=== PATIENT | female | born 1940 | race Caucasian/White ===

== ENCOUNTER 2017-04-20 07:11 | Inpatient (IN) | payer MEDICARE ==
[~2017-04-20] VITALS: Ht 152.4 cm; Wt 45.8 kg
[~2017-04-20 07:11] MED LIST: ALBU2.5V14 IH; ASPI-630 PO; BUDE10.2 IH; CALC600T4 PO; LOSA100T6 PO; LOSA1TAB16 PO; TIOT18CA IH
[2017-04-20] MEDS ORDERED: IPRATRPIUM/ALBUTEROL 0.5/2.5MG 3 ML NEBU. NEB ONE (07:15)
[2017-04-20] MEDS ORDERED: methylPREDNISolone SOD SUCC PF 125 MG/2 ML VIAL. IV ONE (07:15)
--- NOTE | 2017-04-20 07:20 | PHYS DOC ---
Past History Past Medical History: COPD, Hypertension Past Surgical History: Hysterectomy Smoking: Non-smoker Alcohol Use: None Drug Use: None Adult General Chief Complaint Chief Complaint: respiratory distress HPI HPI Patient is a 76 year old female who presents with complaint of respiratory distress. Patient states that she has been having shortness of breath and coughing for the past 2 days. Patient states that her symptoms became severely worse this morning upon awakening. Patient states that she tried albuterol and Spiriva for her symptoms earlier this morning with no improvement in symptoms. Patient denies any fevers or chest pain at this time. Patient follows a Dr. Sterling for primary care. Patient has had no nausea, vomiting, or diaphoresis associated with symptoms. Patient has history of COPD. Patient states she was last admitted to the hospital for similar symptoms "6 or 7 years ago." Review of Systems Review of Systems Constitutional: Denies fever or chills [] Eyes: Denies change in visual acuity, redness, or eye pain [] HENT: Denies nasal congestion or sore throat [] Respiratory: Shortness of breath, cough[] Cardiovascular: Denies chest pain or edema[] GI: Denies abdominal pain, nausea, vomiting, bloody stools or diarrhea [] : Denies dysuria or hematuria [] Musculoskeletal: Denies back pain or joint pain [] Integument: Denies rash or skin lesions [] Neurologic: Denies headache, focal weakness or sensory changes [] Current Medications Current Medications Current Medications Medications (Trade) Dose Ordered Sig/Gunnar Start Time Stop Time Status Last Admin Dose Admin Albuterol/ Ipratropium (Duoneb) 6 ml 1X ONCE 04/20/17 07:15 04/20/17 07:16 UNV Methylprednisolone Sodium Succinate (SOLU-Medrol 125MG VIAL) 125 mg 1X ONCE 04/20/17 07:15 04/20/17 07:16 UNV Allergies Allergies Allergies Coded Allergies Type Severity Reaction Last Updated Verified Amoxicillin Allergy Mild 10/20/13 Yes Physical Exam Physical Exam Constitutional: Alert, afebrile, appears in moderate to severe respiratory distress. [] HENT: Normocephalic, atraumatic, bilateral external ears normal, oropharynx moist, no oral exudates, nose normal. [] Eyes: PERRLA, EOMI, conjunctiva normal, no discharge. [] Neck: Normal range of motion, no tenderness, supple, no stridor. [] Cardiovascular: Tachycardia, regular rhythm, no murmur [] Lungs & Thorax: Moderate to severe restriction of air movement bilaterally, accessory muscle usage bilaterally, expiratory wheezes bilaterally, no rales[] Abdomen: Bowel sounds normal, soft, no tenderness, no masses, no pulsatile masses. [] Skin: Warm, dry, no erythema, no rash. [] Back: No tenderness, no CVA tenderness. [] Extremities: No tenderness, no cyanosis, no clubbing, ROM intact, no edema. [] Neurologic: Alert and oriented X 3, normal motor function, normal sensory function, no focal deficits noted. [] Current Patient Data Vital Signs Vital Signs Date Time Temp Pulse Resp B/P (MAP) Pulse Ox O2 Delivery O2 Flow Rate FiO2 04/20/17 08:03 112 18 128/76 (93) 94 Room Air 04/20/17 07:41 2.0 04/20/17 07:14 98.2 Lab Results Laboratory Tests Test 04/20/17 07:23 White Blood Count 12.1 x10^3/uL Red Blood Count 4.32 x10^6/uL Hemoglobin 13.8 g/dL Hematocrit 39.4 % Mean Corpuscular Volume 91 fL Mean Corpuscular Hemoglobin 32 pg Mean Corpuscular Hemoglobin Concent 35 g/dL Red Cell Distribution Width 12.9 % Platelet Count 226 x10^3/uL Neutrophils (%) (Auto) 88 % Lymphocytes (%) (Auto) 4 % Monocytes (%) (Auto) 4 % Eosinophils (%) (Auto) 3 % Basophils (%) (Auto) 1 % Neutrophils # (Auto) 10.7 x10^3uL Lymphocytes # (Auto) 0.5 x10^3/uL Monocytes # (Auto) 0.5 x10^3/uL Eosinophils # (Auto) 0.3 x10^3/uL Basophils # (Auto) 0.1 x10^3/uL Sodium Level 131 mmol/L Potassium Level 3.8 mmol/L Chloride Level 96 mmol/L Carbon Dioxide Level 22 mmol/L Anion Gap 13 Blood Urea Nitrogen 14 mg/dL Creatinine 0.6 mg/dL Estimated GFR (Cockcroft-Gault) 97.2 BUN/Creatinine Ratio 23 Glucose Level 123 mg/dL Calcium Level 8.8 mg/dL Total Bilirubin 0.4 mg/dL Aspartate Amino Transf (AST/SGOT) 40 U/L Alanine Aminotransferase (ALT/SGPT) 29 U/L Alkaline Phosphatase 81 U/L Total Protein 7.4 g/dL Albumin 4.1 g/dL Albumin/Globulin Ratio 1.2 Current Medications Medications (Trade) Dose Ordered Sig/Gunnar Route PRN Reason Start Time Stop Time Status Last Admin Dose Admin Albuterol/ Ipratropium (Duoneb) 6 ml 1X ONCE NEB 04/20/17 07:15 04/20/17 07:21 DC 04/20/17 07:15 Methylprednisolone Sodium Succinate (SOLU-Medrol 125MG VIAL) 125 mg 1X ONCE IV 04/20/17 07:15 04/20/17 07:21 DC 04/20/17 07:15 EKG EKG Interpreted by me: Heart rate 108, sinus tachycardia, normal intervals, normal axis, no acute ST/T-wave abnormalities present, no significant changes from previous EKG on October 19, 2013[] Radiology/Procedures Radiology/[place] [address] IMAGING REPORT Signed PATIENT: LALITHA DIETRICH ACCOUNT: [id number] : 1940 LOCATION: ER AGE: 76 SEX: F EXAM STATUS: REG ER ORD. PHYSICIAN: ALEYDA COVINGTON MD REASON: shortness of breath PROCEDURE: PORTABLE CHEST 1V AP chest. History: Short of breath AP view was taken of the chest lungs are clear. Heart is normal in size without heart failure. There is no effusion. Impression: 1. No acute chest disease. DICTATED AND SIGNED BY: ANTHONY ANAYA MD DATE: 04/20/17 0751 CC: ROSINA SMITH MD; ALEYDA COVINGTON MD ~ [] Course & Med Decision Making Course & Med Decision Making Pertinent Labs and Imaging studies reviewed. (See chart for details) Patient was given 125 mg of IV Solu-Medrol and 2 DuoNeb treatments in the emergency department. On reevaluation, patient states that her breathing has improved. Chest x-ray shows no evidence of pneumonia. Patient states that she wants to go home at this time. The patient agreed to try Lortab ambulation off of oxygen in the emergency department. Patient ambulated approximately 50 feet in the emergency department. Patient's oxygen saturation while ambulating down to 88% and patient became noticeably more short of breath after ambulation. After speaking with the patient, she states that she does not feel that she can go home and her current state and is agreeable to admission to the hospital for treatment of her COPD exacerbation. I spoke with Dr. Grant, hospitalist, who accepted care patient in hospital. Patient will continue on nebulizer treatments and IV steroids. Dragon Disclaimer Dragon Disclaimer This chart was dictated in whole or in part using Voice Recognition software in a busy, high-work load, and often noisy Emergency Department environment. It may contain unintended and wholly unrecognized errors or omissions. Departure Departure: Impression: Primary Impression: COPD with acute exacerbation Additional Impression: Hypoxia Disposition: ADMITTED INPATIENT Condition: STABLE Referrals: ROSINA SMITH MD (PCP) Problem Qualifiers ALEYDA COVINGTON MD Apr 20, 2017 07:20
[2017-04-20 07:35] LABS: BASO # 0.1 x10^3/uL (0.0-0.2); BASO % 1 % (0-3); EOS # 0.3 x10^3/uL (0.0-0.7); EOS % 3 % (0-3); HEMATOCRIT 39.4 % (36.0-47.0); HEMOGLOBIN 13.8 g/dL (12.0-15.5); LYMPH # 0.5 x10^3/uL (1.0-4.8); LYMPH % 4 % (24-48); MEAN CORPUSCULAR HEMOGLOBIN 32 pg (25-35); MEAN CORPUSCULAR HGB CONC 35 g/dL (31-37); MEAN CORPUSCULAR VOLUME 91 fL (79-100); MONO # 0.5 x10^3/uL (0.0-1.1); MONO % 4 % (0-9); NEUT # 10.7 x10^3uL (1.8-7.7); NEUT % 88 % (31-73); PLATELET COUNT 226 x10^3/uL (140-400); RED BLOOD COUNT 4.32 x10^6/uL (3.50-5.40); RED CELL DISTRIBUTION WIDTH 12.9 % (11.5-14.5); WHITE BLOOD COUNT 12.1 x10^3/uL (4.0-11.0)
[2017-04-20 07:50] LABS: ALBUMIN 4.1 g/dL (3.4-5.0); ALBUMIN/GLOBULIN RATIO 1.2 (1.0-1.7); CALCIUM 8.8 mg/dL (8.5-10.1); CREATININE 0.6 mg/dL (0.6-1.0); GFR 97.2; POTASSIUM 3.8 mmol/L (3.5-5.1); TOTAL BILIRUBIN 0.4 mg/dL (0.2-1.0); TOTAL PROTEIN 7.4 g/dL (6.4-8.2)
--- NOTE | 2017-04-20 07:54 | RAD ---
AP chest. History: Short of breath AP view was taken of the chest lungs are clear. Heart is normal in size without heart failure. There is no effusion. Impression: 1. No acute chest disease.
--- NOTE | 2017-04-20 08:54 | EKG ---
[address] [address] Test Date: 2017-04-20 Test Time: 07:51:44 Pat Name: LALITHA DIETRICH Department: Room: Gender: F Bag Sorter: : 1940 Requested By: ALEYDA COVINGTON Order Number: [id number] Reading MD: Measurements Intervals [place] Rate: 108 P: 90 TN: 128 QRS: 43 QRSD: 86 T: 56 QT: 306 QTc: 414 Interpretive Statements SINUS TACHYCARDIA QRS(T) CONTOUR ABNORMALITY CONSIDER ANTEROSEPTAL MYOCARDIAL DAMAGE CONSIDER INFERIOR MYOCARDIAL DAMAGE POSSIBLY ABNORMAL ECG RI6.01 No previous ECG available for comparison
[2017-04-20 09:15] VITALS: BP 139/67
[2017-04-20 12:03] LABS: BILIRUBIN,URINE NEG (NEG); CLARITY,URINE CLEAR; COLOR,URINE YELLOW; GLUCOSE,URINE NEG (NEG)
[2017-04-20 12:04] LABS: BACTERIA,URINE 0 /HPF (0-FEW); NITRITE,URINE NEG (NEG); SQUAMOUS EPITHELIAL CELL,UR FEW /LPF; UROBILINOGEN,URINE 0.2 mg/dL (0.2 mg/dL); WBC,URINE 0 /HPF (0-4)
[2017-04-20] MEDS ORDERED: CILO100T PO (12:34)
[2017-04-20] MEDS ORDERED: LOSA1TAB17 PO (13:09)
[2017-04-20 15:19] VITALS: BP 100/52
--- NOTE | 2017-04-20 16:40 | HP ---
ADMIT DATE: 04/20/2017 HISTORY OF PRESENT ILLNESS: The patient is a 76-year-old female patient, who came to the Emergency Room complaining of shortness of breath and coughing for the last , 2 days. She stated that her symptoms became severely worse this morning upon awakening. The patient stated that she tried albuterol and Spiriva for her symptoms earlier this morning without no improvement in symptoms. She denied any fever or chest pain. She has had no nausea, vomiting, or diaphoresis symptoms. She is known to have chronic obstructive pulmonary disease; however, the last admission was about 6 to 7 years. She apparently has completed 5-day course of nitrofurantoin recently. In fact, the last dose of Macrobid was last night at 11:00. PAST MEDICAL HISTORY: Significant for chronic obstructive pulmonary disease, hypertension, hyperlipidemia, peripheral vascular disease. PAST SURGICAL HISTORY: The patient has had right lower lobe angioplasty and stent deployment, bladder suspension surgery, bilateral cataract extraction, tonsillectomy, appendectomy, total abdominal hysterectomy, bilateral salpingectomy. She has also had colonoscopy as her stool was positive for blood. She apparently had history of cervical cancer as well as urinary incontinence and anxiety. ALLERGIES: She is allergic to AMOXICILLIN. MEDICATIONS: She is currently on following medications: She is on albuterol sulfate 2.5 mg by nebulizer every 4 hours, aspirin 81 mg once a day, budesonide/formoterol fumarate for Symbicort 2 puffs twice a day, calcium carbonate 600 mg once a day, cilostazol 100 mg daily, losartan/hydrochlorothiazide 100/25 mg 1 tablet daily, tiotropium bromide for Spiriva 1 inhalation once a day. FAMILY HISTORY: She has 2 sisters, one older and 1 younger. Her brother at age of 59 because of acute leukemia. Her father at age of 41 because of acute leukemia. Mother at age of 59 because of pulmonary embolism. SOCIAL HISTORY: She is , has 1 daughter. She is an ex-smoker, quit at age of 39. Drinks 1 glass of wine every day, sometimes 2 glasses of wine. 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 REVIEW OF SYSTEMS: The patient denied any blurring of vision, cataract, glaucoma or macular degeneration. Denied any earache, tinnitus or sensorineural deafness. Denied any nosebleeds, stuffy nose or postnasal drip. Denied any sore throat, sore tongue, toothache, hoarseness of voice or difficulty swallowing. Denied any nausea, vomiting, diarrhea or constipation. Denied any hematemesis, melena, or hematochezia. Denied any dysuria, frequency, or hematuria. Denied any chest pain. Did complain of shortness of breath, cough, which is mostly dry. Denied any chills, rigors, or fever. Denied any dizziness, lightheadedness, or vertigo. PHYSICAL EXAMINATION: GENERAL: On arrival to the Emergency Room, she was slightly pale, but no jaundice, cyanosis, or thyromegaly. No jugular venous distention. No limb edema. VITAL SIGNS: Her heart rate was 109, blood pressure was 161/79, temperature was 98.2, respiratory rate was 24, and oxygen saturation was 87% on room air. HEAD, EYES, EARS, NOSE AND THROAT: Showed normocephalic, atraumatic. NECK: Supple. HEART: Showed normal first and second heart sounds. No gallop, rub or murmur. CHEST: Clear to auscultation. The patient has moderate to severe restriction of air movement bilaterally. She was using accessory muscles bilaterally with expiratory wheezes. No rales. ABDOMEN: Soft, nontender. No guarding or rigidity. No organomegaly. All hernial orifices intact. Bowel sounds normal. NEUROLOGIC: She was awake, alert, oriented x 3 with normal motor or sensory deficit. EXTREMITIES: Showed no clubbing, cyanosis, or edema. SKIN: Warm, dry with no erythema or rash. LABORATORY DATA: While in the Emergency Room, her lab work showed white cell count of 12,100, hemoglobin 13.8, hematocrit 39, MCV 91, and platelet count of 226,000 with a manual differential showed 86% polymorphs, 4% lymphocytes. Her serum sodium was 131, potassium 3.8, chloride 96, bicarbonate 22, anion gap of 13, BUN of 14, creatinine 0.6, estimated GFR was 97 mL per minute. Her glucose was 123, calcium was 8.8. Total bilirubin, AST, ALT, alkaline phosphatase were normal. Total protein was 7.4, albumin was 4.1. Her urinalysis showed the urine was yellow, clear with a pH of 6.5 with specific gravity of 1.010. The urine was negative for protein, glucose, ketones with small amount of blood, negative for nitrite and leukocyte esterase, 1-2 rbc's, 0 wbc's, and no bacteria. Her chest x-ray showed that the lungs are clear. Heart is normal in size without heart failure. There is no effusion. ASSESSMENT AND PLAN: In summary, this is a 76-year-old female patient, who was just completed the course of nitrofurantoin for what seemed to be a urinary tract infection. She came with worsening shortness of breath with dry cough and hypoxia. The patient normally is very active. She said she works 6 days a week and she walks everyday 2 miles. She is not normally on oxygen. The only other abnormality is perhaps DVT and PE. I will arrange for her to have D-dimer and might have to arrange for her to have a CT scan of the chest with PE protocol and although the temporal association between use of nitrofurantoin might explain her symptoms as nitrofurantoin is known to cause pulmonary hypersensitivity, interstitial pneumonitis, and even pulmonary fibrosis. HENRIETTA JHAVERI MD DR: HOUSTON/alexandro JOB#: [id number] / [id number]
[2017-04-20] MEDS ORDERED: IOHEXOL 300 MG/ML 75 ML VIAL. IV ONE ×2 (17:20→18:30)
[2017-04-20] MEDS ORDERED: CONTRAST GIVEN MC PRN (18:30)
[2017-04-20 19:00] VITALS: BP 116/54
--- NOTE | 2017-04-20 19:27 | RAD ---
CTA Chest with contrast: Clinical History: short of breath, elevated d-dimer, copd
Omni 300 75cc Shortness of breath. Axial helical images of the chest were obtained after the administration of 75 cc of IV Omni 300 and timed appropriately for a pulmonary arterial study. Conventional axial reconstruction was performed in addition to coronal, sagittal and bilateral oblique MIP (maximum intensity projection). This study was ordered to detect possible pulmonary embolism. There are no filling defects to suggest pulmonary embolism. The more peripheral subsegmental pulmonary arteries are not well opacified limiting our sensitivity for small peripheral pulmonary emboli. There is diffuse emphysematous changes. There is a tiny left effusion and there is mild basilar patchy opacities left more than right. There is no mediastinal or hilar lymphadenopathy. The thoracic aorta appears normal. Impression: 1. No evidence of pulmonary embolism. This study lacks sensitivity for possible small pulmonary emboli due to poor opacification of the peripheral vessels. 2. Tiny left effusion and mild basilar infiltrates likely discoid atelectasis and emphysematous changes. PQRS Compliance Statement: One or more of the following individualized dose reduction techniques were utilized for this examination: 1. Automated exposure control 2. Adjustment of the mA and/or kV according to patient size 3. Use of iterative reconstruction technique Electronically signed by: Yunier Mendieta III, MD (04/20/2017 7:23 PM) [facility]
[2017-04-20] MEDS: ALBUTEROL SULFATE 2.5 MG/3 ML NEBU. NEB PRN (20:26)
[2017-04-20] MEDS: BUDESONIDE 0.5 MG/2 ML NEBU NEB SCH (20:26)
[2017-04-20] MEDS: ASPIRIN 81 MG TAB.CHEW PO SCH (21:02)
[2017-04-20] MEDS: TEMAZEPAM 15 MG CAPSULE PO PRN (22:07)
[2017-04-20] MEDS: methylPREDNISolone SOD SUCC PF 40 MG/ML VIAL. IV SCH (22:08)
[2017-04-20 23:00] VITALS: BP 120/58
[2017-04-21 05:00] VITALS: BP 106/58
[2017-04-21] MEDS: methylPREDNISolone SOD SUCC PF 40 MG/ML VIAL. IV SCH ×3 (06:18→21:16)
[2017-04-21 06:34] LABS: BASO % 0 % (0-3); EOS % 0 % (0-3); HEMATOCRIT 35.8 % (36.0-47.0); HEMOGLOBIN 12.6 g/dL (12.0-15.5); LYMPH # 0.6 x10^3/uL (1.0-4.8); LYMPH % 4 % (24-48); MEAN CORPUSCULAR HEMOGLOBIN 32 pg (25-35); MEAN CORPUSCULAR HGB CONC 35 g/dL (31-37); MEAN CORPUSCULAR VOLUME 91 fL (79-100); MONO # 0.3 x10^3/uL (0.0-1.1); MONO % 2 % (0-9); NEUT # 14.5 x10^3uL (1.8-7.7); NEUT % 93 % (31-73); PLATELET COUNT 227 x10^3/uL (140-400); RED BLOOD COUNT 3.96 x10^6/uL (3.50-5.40); RED CELL DISTRIBUTION WIDTH 12.6 % (11.5-14.5); WHITE BLOOD COUNT 15.5 x10^3/uL (4.0-11.0)
[2017-04-21 06:45] LABS: ALBUMIN 3.4 g/dL (3.4-5.0); ALBUMIN/GLOBULIN RATIO 0.9 (1.0-1.7); CALCIUM 8.7 mg/dL (8.5-10.1); CREATININE 0.6 mg/dL (0.6-1.0); GFR 97.2; TOTAL BILIRUBIN 0.3 mg/dL (0.2-1.0)
[2017-04-21] MEDS: ACETAMINOPHEN 325 MG TABLET PO PRN ×2 (07:25→15:09)
[2017-04-21 07:38] VITALS: BP 125/66
[2017-04-21 08:02] LABS: % BANDS 5 % (0-9); % LYMPHS 3 % (24-48); % MONOS 3 % (0-10); % SEGS 88 % (35-66)
[2017-04-21 08:03] LABS: PLT ESTIMATE ADEQUATE (ADEQUATE)
[2017-04-21] MEDS ORDERED: hydroCHLOROthiazide 25 MG TABLET PO SCH (09:00)
[2017-04-21] MEDS ORDERED: POTASSIUM CL 40MEQ IN 0.9%NACL 1,000 ML IV ONE (09:10)
[2017-04-21] MEDS: CILOSTAZOL 100 MG PO SCH (09:22)
[2017-04-21] MEDS: CALCIUM CARBONATE 500 MG TABLET PO SCH (09:23)
[2017-04-21] MEDS: LOSARTAN 50 MG TABLET. PO SCH (09:23)
[2017-04-21 11:00] VITALS: BP 119/58
[2017-04-21] MEDS: BUDESONIDE 0.5 MG/2 ML NEBU NEB SCH ×2 (11:06→20:22)
[2017-04-21 15:00] VITALS: BP 107/56
[2017-04-21 19:21] VITALS: BP 114/55
[2017-04-21] MEDS: ALBUTEROL SULFATE 2.5 MG/3 ML NEBU. NEB PRN (20:22)
[2017-04-21] MEDS: TEMAZEPAM 15 MG CAPSULE PO PRN (21:15)
[2017-04-21] MEDS: ASPIRIN 81 MG TAB.CHEW PO SCH (21:15)
[2017-04-21 23:00] VITALS: BP 140/62
[2017-04-22] MEDS: methylPREDNISolone SOD SUCC PF 40 MG/ML VIAL. IV SCH (05:47)
[2017-04-22 06:11] LABS: CALCIUM 8.5 mg/dL (8.5-10.1); CREATININE 0.5 mg/dL (0.6-1.0); MAGNESIUM 1.7 mg/dL (1.8-2.4); POTASSIUM 3.6 mmol/L (3.5-5.1)
[2017-04-22 06:21] LABS: HEMATOCRIT 33.7 % (36.0-47.0); HEMOGLOBIN 11.7 g/dL (12.0-15.5); RED BLOOD COUNT 3.67 x10^6/uL (3.50-5.40); RED CELL DISTRIBUTION WIDTH 13.1 % (11.5-14.5); WHITE BLOOD COUNT 21.1 x10^3/uL (4.0-11.0)
[2017-04-22 07:20] VITALS: BP 148/69
[2017-04-22 07:26] VITALS: BP 148/69
[2017-04-22] MEDS: LOSARTAN 50 MG TABLET. PO SCH (07:26)
[2017-04-22] MEDS: CALCIUM CARBONATE 500 MG TABLET PO SCH (07:26)
[2017-04-22] MEDS: CILOSTAZOL 100 MG PO SCH (07:26)
[2017-04-22] MEDS: ACETAMINOPHEN 325 MG TABLET PO PRN (07:27)
[2017-04-22] MEDS: BUDESONIDE 0.5 MG/2 ML NEBU NEB SCH (10:06)
[2017-04-22] MEDS ORDERED: PRED-220 PO (10:49)
--- NOTE | 2017-04-22 11:28 | PN ---
DATE: 04/21/2017 SUBJECTIVE: The patient is resting, slightly propped up in bed, in no apparent distress. Her oxygen saturation is about on room air sitting; however, she desaturates quickly with minimal exertion, goes down to 88%. Her electrolytes, especially sodium and potassium are low as well as chloride, she is on hydrochlorothiazide. We discontinued her hydrochlorothiazide, started on normal saline with potassium chloride. Her D-dimer was slightly elevated yesterday and we arranged for her to have a CT scan of the chest with PE protocol, which basically showed that there is no evidence of pulmonary embolism. She has tiny left-sided effusion, mild basilar infiltrate likely discoid atelectasis or emphysematous changes. PHYSICAL EXAMINATION: GENERAL: When I examined her stat this morning, she looked well and was clearly in no apparent respiratory distress, pale, but no jaundice, cyanosis, or thyromegaly. No jugular venous distention. No limb edema. VITAL SIGNS: Her heart rate was 84, blood pressure was 125/66, temperature was 96.8, respiratory rate was 20, and oxygen saturation was %. HEAD, EYES, EARS, NOSE AND THROAT: Showed normocephalic, atraumatic. NECK: Supple. HEART: Showed normal first and second sounds. No gallop, rub or murmur. CHEST: Clear to auscultation. No crepitation or rhonchi. ABDOMEN: Slightly distended, soft, nontender. No guarding or rigidity. No organomegaly. Hernial orifices intact. Bowel sounds normal. NEUROLOGIC: She was awake, alert, responding appropriately. Her cranial nerves intact. She moves extremities without difficulty. She ambulates without assistance or assistive devices. Her intake over the last 24 hours was 1150, output was 1000. Her white cell count was slightly up 15,500, hemoglobin 12.6, hematocrit 35.8, MCV 91, and platelet count 227,000 with a manual differential showed 93% polymorphs, 4% lymphocytes, and 2% monocytes. Her chemistry showed a serum sodium of 128, potassium 3, chloride 92, bicarbonate 26, anion gap of 10, BUN 12, creatinine 0.6, estimated GFR was 97 mL per minute. Her glucose ____, calcium was 8.7. Total bilirubin, AST, ALT, alkaline phosphatase is normal. Her total protein was 7, albumin was 3.4. 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 Other medical problems include hypertension, hyperlipidemia, peripheral vascular disease; status post revascularization of the right lower extremity. PLAN: My plan is to continue with IV steroids. We had to start her on normal saline with 40 mEq of potassium chloride to ____ her as she has had hyponatremia and hypokalemia. We will do a 6-minute walk to qualify her for oxygen if need be, and I will consult Dr. Mishra to see if there is anything else to be done regarding this hypersensitivity pneumonitis, likely induced by the nitrofurantoin. HENRIETTA JHAVERI MD DR: [place]/alexandro JOB#: [id number] / [id number]
[2017-04-22] MEDS ORDERED: methylPREDNISolone SOD SUCC PF 40 MG/ML VIAL. IV SCH (14:00)
--- NOTE | 2017-04-23 00:23 | PN ---
DATE: CURRENT PROBLEMS: 1. Acute hypoxic respiratory failure secondary to nitrofurantoin. 2. Emphysema per CAT scan. 3. Elevated D-dimer, pulmonary embolism ruled out. 4. Hyponatremia, improving. 5. Hypokalemia, resolved. 6. Hypomagnesemia. 7. Leukocytosis without evidence of inflammation and secondary to steroids. NARRATIVE: A 76-year-old female, who was admitted with acute hypoxic respiratory failure and shortness of breath. This is after she had completed 7 days of Macrodantin for UTI. This can cause the hypersensitivity pneumonitis and actual pulmonary fibrosis. Probably under the background of emphysema triggered this respiratory failure. She is not on oxygen at home. She is feeling much better today and is anxious to be discharged. 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 She had seen Dr. Aguilar in years past who had recommended no further aerosol hair spray. She does use just a pump spray, but is still around a lot of chemicals. OBJECTIVE: VITAL SIGNS: Blood pressure is 148/69, pulse 87, respirations 22, pulse ox 96% on room air. GENERAL: Her color is good. HEENT: Nose, patent. Throat, clear. NECK: Supple. LUNGS: Clear. She does cough deep inspiration. CARDIOVASCULAR: Regular rhythm and rate. EXTREMITIES: Without edema. PLAN: Repeat 6-minute walk, decrease steroids, start planning for discharge. JOVITA JERRY DO DR: CAS[place]/alexandro JOB#: [id number] / [id number]
--- NOTE | 2017-04-23 11:07 | PDOC3 ---
Discharge Summary Visit Information Date of Admission: Apr 20, 2017 Date of Discharge: Apr 22, 2017 Final Diagnosis Problems Medical Problems: (1) COPD with acute exacerbation Status: Acute (2) Hypoxia Status: Acute PROBLEMS: 1. Acute hypoxic respiratory failure secondary to nitrofurantoin. 2. Emphysema per CAT scan. 3. Elevated D-dimer, pulmonary embolism ruled out. 4. Hyponatremia, improving. 5. Hypokalemia, resolved. 6. Hypomagnesemia. 7. Leukocytosis without evidence of inflammation and secondary to steroids. 8. Insomnia-treated with Restoril; Problems: Brief Hospital Course Allergies Allergies Coded Allergies Type Severity Reaction Last Updated Verified amoxicillin Allergy Mild 10/20/13 Yes Vital Signs Vital Signs Date Time Temp Pulse Resp B/P (MAP) Pulse Ox O2 Delivery O2 Flow Rate FiO2 04/22/17 10:07 94 Room Air 04/22/17 07:26 148/69 04/22/17 07:20 87 22 04/21/17 23:00 97.6 04/20/17 07:41 2.0 Lab Results Laboratory Tests Test 04/22/17 05:49 White Blood Count 21.1 x10^3/uL (4.0-11.0) Red Blood Count 3.67 x10^6/uL (3.50-5.40) Hemoglobin 11.7 g/dL (12.0-15.5) Hematocrit 33.7 % (36.0-47.0) Mean Corpuscular Volume 92 fL (79-100) Mean Corpuscular Hemoglobin 32 pg (25-35) Mean Corpuscular Hemoglobin Concent 35 g/dL (31-37) Red Cell Distribution Width 13.1 % (11.5-14.5) Platelet Count 226 x10^3/uL (140-400) Sodium Level 134 mmol/L (136-145) Potassium Level 3.6 mmol/L (3.5-5.1) Chloride Level 102 mmol/L (98-107) Carbon Dioxide Level 26 mmol/L (21-32) Anion Gap 6 (6-14) Blood Urea Nitrogen 12 mg/dL (7-20) Creatinine 0.5 mg/dL (0.6-1.0) Estimated GFR (Cockcroft-Gault) 120.0 Glucose Level 140 mg/dL (70-99) Calcium Level 8.5 mg/dL (8.5-10.1) Magnesium Level 1.7 mg/dL (1.8-2.4) Brief Hospital Course Ms. Horan is a 76 old female who presented with acute hypoxic respiratory failure after completing a seven day course of macrodantin. Most likely a hypersensitivity pneumonitis. She was treated with IV steroids and breathing treatments. She did require oxygen and will be sent home on it. She improved throught her stay and was discharged on Home Health. Discharge Information Condition at Discharge: Improved Disposition/Orders: D/C to Home w/ HH Dischare Medications Current Medications Albuterol/ Ipratropium (Duoneb) 6 ml 1X ONCE NEB Last administered on 07:15; Start 04/20/17 at 07:15; Stop 04/20/17 at 07:21; Status DC Methylprednisolone Sodium Succinate (SOLU-Medrol 125MG VIAL) 125 mg 1X ONCE IV Last administered on 04/20/17 07:15; Start 04/20/17 at 07:15; Stop 04/20/17 at 07:21; Status DC Aspirin (Children'S Aspirin) 81 mg HS PO Last administered on 04/21/17 21:15; Start 04/20/17 at 21:00; Stop 04/22/17 at 12:32; Status DC Cilostazol (Pletal) 100 mg DAILY PO Last administered on 04/22/17 07:26; Start 04/21/17 at 09:00; Stop 04/22/17 at 12:32; Status DC Albuterol Sulfate (Ventolin) 2.5 mg PRN Q4HRS PRN NEB SHORTNESS OF BREATH Last administered on 04/21/17 20:22; Start 04/20/17 at 14:15; Stop 04/22/17 at 12:32 ; Status DC Calcium Carbonate/ Glycine (Oscal) 500 mg DAILY PO Last administered on 07:26; Start 04/21/17 at 09:00; Stop 04/22/17 at 12:32; Status DC Losartan Potassium (Cozaar) 100 mg DAILY PO Last administered on 04/22/17 07: 26; Start 04/21/17 at 09:00; Stop 04/22/17 at 12:32; Status DC Methylprednisolone Sodium Succinate (SOLU-Medrol 40MG VIAL) 40 mg Q8HRS IV Last administered on 04/22/17 05:47; Start 04/20/17 at 22:00; Stop 04/22/17 at 08:56; Status DC Budesonide (Pulmicort) 0.5 mg RTBID NEB Last administered on 04/22/17 10:06; Start 04/20/17 at 20:00; Stop 04/22/17 at 12:32; Status DC Temazepam (Restoril) 15 mg PRN QHS PRN PO INSOMNIA Last administered on 21:15; Start 04/20/17 at 14:15; Stop 04/22/17 at 12:32; Status DC Hydrochlorothiazide (Hydrodiuril) 25 mg DAILY PO ; Start 04/21/17 at 09:00; Stop 04/21/17 at 09:00; Status DC Iohexol (Omnipaque 300 Mg/ml) 75 ml 1X ONCE IV Last administered on 04/20/17 18:51; Start 04/20/17 at 17:20; Stop 04/20/17 at 17:21; Status DC Iohexol (Omnipaque 300 Mg/ml) 75 ml 1X ONCE IV ; Start 04/20/17 at 18:30; Stop 04/20/17 at 18:31; Status DC Info (Do NOT chart on this entry -- for MONITORING) 1 each PRN DAILY PRN MC SEE COMMENTS; Start 04/20/17 at 18:30; Stop 04/22/17 at 12:32; Status DC Acetaminophen (Tylenol) 650 mg PRN Q6HRS PRN PO PAIN / TEMP Last administered on 04/22/17 07:27; Start 04/21/17 at 07:15; Stop 04/22/17 at 12:32; Status DC Potassium Chloride/Sodium Chloride 1,000 ml @ 75 mls/hr 1X ONCE IV Last administered on 04/21/17 09:22; Start 04/21/17 at 09:10; Stop 04/21/17 at 22:29 ; Status DC Methylprednisolone Sodium Succinate (SOLU-Medrol 40MG VIAL) 20 mg Q8HRS IV ; Start 04/22/17 at 14:00; Stop 04/22/17 at 14:00; Status DC Active Scripts Active Prednisone 10 Mg Tablet 10 Mg PO DAILY 50MGX2, 40MGX2, 30MGX2,20MGX2,10MGX2 THEN STOP Reported Losartan-Hctz 100-25 Mg Tab (Losartan/Hydrochlorothiazide) 1 Each Tablet 1 Tab PO DAILY Cilostazol 100 Mg Tablet 100 Mg PO DAILY Spiriva (Tiotropium [place]) 18 Mcg Cap.w.dev 18 Mcg IH DAILY Albuterol Sulfate Conc Neb Soln (Albuterol Sulfate) 2.5 Mg/0.5 Ml Vial.neb 2.5 Mg IH PRN Q4HRS PRN Aspirin 81 Mg Tab.chew 81 Mg PO HS Calcium (Calcium Carbonate) 600 Mg Tablet 600 Mg PO DAILY Symbicort 160-4.5 Mcg Inhaler (Budesonide/Formoterol Fumarate) 10.2 Gm Hfa.aer.ad 10.2 Gm IH Patient Instructions Patient Instuctions see discharge instructions on JOVITA Cobos DO Apr 23, 2017 11:07
== END 2017-04-22 12:25 | disposition home health service (06) | DRG 189 ==
LOC: ER 07:11 → 1 SOUTH 08:29 → ICU 08:29
PROVIDERS: ADMIT Internal Medicine; ATTEND Internal Medicine
DX: J96.01 Acute respiratory failure with hypoxia (principal); E87.1 Hypo-osmolality and hyponatremia; I10 Essential (primary) hypertension; J44.1 Chronic obstructive pulmonary disease with (acute) exacerbation; J70.4 Drug-induced interstitial lung disorders, unspecified; E78.5 Hyperlipidemia, unspecified; E83.42 Hypomagnesemia; E87.6 Hypokalemia; G47.00 Insomnia, unspecified; I73.9 Peripheral vascular disease, unspecified; T37.8X5A Adverse effect of other specified systemic anti-infectives and antiparasitics, initial encounter; F41.9 Anxiety disorder, unspecified; Z98.42 Cataract extraction status, left eye; Z79.51 Long term (current) use of inhaled steroids; Z79.82 Long term (current) use of aspirin; Z79.899 Other long term (current) drug therapy; Z90.79 Acquired absence of other genital organ(s); Z90.49 Acquired absence of other specified parts of digestive tract; Z80.6 Family history of leukemia; Z85.41 Personal history of malignant neoplasm of cervix uteri; Z87.891 Personal history of nicotine dependence; Z90.710 Acquired absence of both cervix and uterus; Z98.41 Cataract extraction status, right eye; Z95.5 Presence of coronary angioplasty implant and graft; Z88.8 Allergy status to other drugs, medicaments and biological substances; Y92.89 Other specified places as the place of occurrence of the external cause
CPT/HCPCS: 36415; 71010; 71275; 80048; 80053; 81001; 83735; 85007; 85025; 85027; 85379; 87641; 93005; 94250; 94620; 94640; 96374; J2920; J2930; J7613; J7620; J7626; Q9967; 99285-25

== ENCOUNTER → 2017-12-31 | Outpatient (CLI) | payer MEDICARE ==
[~2017-12-31] MED LIST changes: +CILO100T PO; -LOSA1TAB16 PO; +LOSA1TAB19 PO; +LOSA1TAB22 PO; +PRED-220 PO
--- NOTE | 2018-01-01 09:00 | RAD ---
EXAM: Maxillofacial bone CT without contrast. HISTORY: Cough and sinusitis. TECHNIQUE: Computed tomographic images of the maximal facial bones were obtained without contrast. *One or more of the following individualized dose reduction techniques were utilized for this examination: 1. Automated exposure control. 2. Adjustment of the mA and/or kV according to patient size. 3. Use of iterative reconstruction technique. COMPARISON: None. FINDINGS: The paranasal sinuses are clear. There is attenuation of the ostiomeatal units. There is leftward nasal septal deviation. There is evidence of lens surgery. There is slight orbital band keratopathy. The mastoid air cells are clear. The visualized portions of the brain are unremarkable. There is endplate remodeling with moderate right greater than left facet arthropathy at C2-C3. IMPRESSION: Slight attenuation of the ostiomeatal meatal units and nasal septal deviation. There is no sinus opacification or air-fluid level to suggest acute sinusitis. Electronically signed by: Onelia Castaneda MD (01/01/2018 8:56 AM) [place] [id number]
== END | disposition home or self-care (01) ==
LOC: CT 14:18
PROVIDERS: ATTEND Family Medicine
DX: J34.2 Deviated nasal septum (principal); M12.88 Other specific arthropathies, not elsewhere classified, other specified site
CPT/HCPCS: 70486

== ENCOUNTER → 2018-03-04 | Outpatient (CLI) | payer MEDICARE ==
--- NOTE | 2018-03-05 08:26 | RAD ---
DEXA scan 03/04/2018 Clinical History: Postmenopausal female. Risk factors for osteoporosis. Technique: DEXA of the lumbar spine and right hip was performed. FINDINGS: No previous studies are available for comparison. The bone mineral density of the lumbar spine is 1.127 g/cm2 which corresponds with a T-score of -0.4 . This is within normal limits. The mean bone mineral density of the right hip is 689 g/sq cm. This corresponds to a T score of -2.2. This is consistent with severe osteopenia. By World Congress on Osteoporosis criteria, a T score of 0 to-1 SD is considered to be within normal limits. A T score of -1 to -2.5 SD is considered osteopenia. A T score less than -2.5 SD is considered osteoporosis Impression: 1. The mean bone mineral density of the lumbar spine is within normal limits. 2. Severe osteopenia of the right hip. Electronically signed by: Dar Spears MD (03/05/2018 8:22 AM) [id number]
== END | disposition home or self-care (01) ==
LOC: DXRAD 14:52
PROVIDERS: ATTEND Family Medicine
DX: Z13.820 Encounter for screening for osteoporosis (principal); M85.88 Other specified disorders of bone density and structure, other site; I10 Essential (primary) hypertension; E78.5 Hyperlipidemia, unspecified; J44.1 Chronic obstructive pulmonary disease with (acute) exacerbation; E87.6 Hypokalemia; Z87.891 Personal history of nicotine dependence; Z95.5 Presence of coronary angioplasty implant and graft; Z90.49 Acquired absence of other specified parts of digestive tract; Z90.79 Acquired absence of other genital organ(s)
CPT/HCPCS: 77080

== ENCOUNTER 2021-05-01 00:24 | Emergency (ER) | payer MEDICARE ==
[~2021-05-01] VITALS: Ht 149.9 cm; Wt 40.0 kg
[~2021-05-01 00:24] MED LIST changes: -CALC600T4 PO; +CALC600T60 PO; +LOSA100T14 PO; -LOSA100T6 PO
--- NOTE | 2021-05-01 00:34 | PHYS DOC ---
Past History Past Medical History: Anxiety, Cancer, COPD, GERD, Hypertension, UTI Past Surgical History: Appendectomy, Cancer Surgery, Hysterectomy Smoking: Non-smoker Alcohol Use: None Drug Use: None Adult General HPI HPI Patient is an 80-year-old female presents with leg pain, who has a past medical history significant for peripheral artery disease and bilateral lower extremity stent placement. Patient states she is having pain in her right leg, 7 out of 10, sharp in nature over the last couple of days, but is worse when walking and a little better when resting. Denies any recent travels, traumas, illnesses, fevers, chest pain, shortness of breath, abdominal pain, nausea, vomiting, diarrhea. Review of Systems Review of Systems Review of systems otherwise unremarkable except noted in HPI Allergies Allergies Allergies Coded Allergies Type Severity Reaction Last Updated Verified nitrofurantoin Allergy Intermediate Shortness of Air 07/21/18 Yes amoxicillin Allergy Mild 10/20/13 Yes Physical Exam Physical Exam Constitutional: Well developed, well nourished, no acute distress, non-toxic appearance. [] HENT: Normocephalic, atraumatic, bilateral external ears normal, oropharynx moist, no oral exudates, nose normal. [] Eyes: conjunctiva normal, no discharge. [] Neck: Normal range of motion, no tenderness, supple, no stridor. [] Cardiovascular:Heart rate regular rhythm, no murmur [] Lungs & Thorax: Bilateral breath sounds clear to auscultation [] Abdomen: Bowel sounds normal, soft, no tenderness, no masses, no pulsatile masses. [] Skin: Warm, dry, no erythema, no rash. [] Back: No tenderness, no CVA tenderness. [] Extremities: Right lower extremity noticeably cooler than the left lower extremity with much harder to palpate popliteal DP and PT pulses, patient able to move the leg and has sensation Neurologic: Alert and oriented X 3, no focal deficits noted. [] Psychologic: Affect normal, judgement normal, mood normal. [] EKG EKG [] Radiology/Procedures Radiology/Procedures [] US RIGHT LOWER EXTREMITY ARTERIAL DUPLEX EVAL Indication: Reason: PAD, stents in place / Spl. Instructions: / History: Comparison: None. Procedure: Real-time grayscale, color flow Doppler, and Doppler spectral waveform analysis of the arterial system of the lower extremity is performed. Findings: Triphasic or biphasic waveforms within the common femoral, deep femoral and proximal superficial femoral arteries. Occlusion of the distal superficial femoral artery with distal reconstitution of the popliteal artery. Monophasic waveforms throughout the remainder of the right lower extremity. Decreased velocity within the distal right lower extremity. Moderate atheromatous plaque. Superficial femoral artery stents. IMPRESSION: 1. Occlusion of the right distal superficial femoral artery with reconstitution of the popliteal artery and diminished flow within the distal lower extremity. Electronically signed by: Ishmael Miranda DO (05/01/2021 2:45 AM) [facility] Heart Score C/O Chest Pain: No Risk Factors: Risk Factors: DM, Current or recent (<one month) smoker, HTN, HLP, family history of CAD, obesity. Risk Scores: Risk Factors: DM, Current or recent (<one month) smoker, HTN, HLP, family history of CAD, obesity. Course & Med Decision Making Course & Med Decision Making Patient is an 80-year-old female who presents with claudication of the right lower extremity Vital signs notable for hypertension. Physical exam noted above. Patient placed on monitor with IV access established. EKG noted above with no STEMI. Troponin not concerning. Elevated D-dimer. Ultrasound showing occlusion of the right distal superficial femoral artery with reconstitution of the popliteal artery and diminished flow within the distal lower extremity. Started on heparin. Discussed all findings with patient and recommended admission to facility with a vascular surgeon. Family requested to be transferred to [facility] as their engineering operator and vascular surgeon are there and that is where she had her surgery was [facility]. [] Dragon Disclaimer Dragon Disclaimer This electronic medical record was generated, in whole or in part, using a voice recognition dictation system. Departure Departure: Impression: Primary Impression: Peripheral artery disease Additional Impression: Arterial occlusion Disposition: SHORT TERM HOSPITAL Admitting Physician: Other Condition: STABLE Referrals: RILEY WAGNER MD (PCP) Problem Qualifiers LOVE MATTHEWS MD May 01, 2021 00:34
--- NOTE | 2021-05-01 01:24 | EKG ---
[address] [address] Test Date: 2021-05-01 Test Time: 01:07:03 Pat Name: LALITHA DIETRICH Department: Room: Gender: F Admission Liaison: SONAM : 1940 Requested By: LOVE MATTHEWS Order Number: [id number] Reading MD: Marcos Dowd MD Measurements Intervals [place] Rate: 78 P: 90 WV: 138 QRS: 3 QRSD: 74 T: 52 QT: 340 QTc: 391 Interpretive Statements SINUS RHYTHM Electronically Signed On 05-08-2021 12:05:33 CDT by Marcos Dowd MD
[2021-05-01] MEDS ORDERED: RINGERS LACTATED IV ONE (01:30)
[2021-05-01] MEDS ORDERED: ACETAMINOPHEN 500 MG TABLET PO ONE (01:30)
[2021-05-01 01:44] LABS: BASO % 0 % (0-3); EOS # 0.3 x10^3/uL (0.0-0.7); EOS % 3 % (0-3); HEMATOCRIT 35.8 % (36.0-47.0); HEMOGLOBIN 11.7 g/dL (12.0-15.5); LYMPH # 1.5 x10^3/uL (1.0-4.8); LYMPH % 14 % (24-48); MEAN CORPUSCULAR HEMOGLOBIN 31 pg (25-35); MEAN CORPUSCULAR HGB CONC 33 g/dL (31-37); MEAN CORPUSCULAR VOLUME 96 fL (79-100); MONO # 1.6 x10^3/uL (0.0-1.1); MONO % 14 % (0-9); NEUT # 7.7 x10^3uL (1.8-7.7); NEUT % 69 % (31-73); PLATELET COUNT 333 x10^3/uL (140-400); RED BLOOD COUNT 3.75 x10^6/uL (3.50-5.40); RED CELL DISTRIBUTION WIDTH 13.9 % (11.5-14.5); WHITE BLOOD COUNT 11.2 x10^3/uL (4.0-11.0)
[2021-05-01 01:53] LABS: CALCIUM 8.6 mg/dL (8.5-10.1); CREATININE 0.7 mg/dL (0.6-1.0); GFR 80.5; POTASSIUM 4.1 mmol/L (3.5-5.1)
--- NOTE | 2021-05-01 02:47 | RAD ---
US RIGHT LOWER EXTREMITY ARTERIAL DUPLEX EVAL Indication: Reason: PAD, stents in place / Spl. Instructions: / History: Comparison: None. Procedure: Real-time grayscale, color flow Doppler, and Doppler spectral waveform analysis of the art erial system of the lower extremity is performed. Findings: Triphasic or biphasic waveforms within the common femoral, deep femoral and proximal superficial femo ral arteries. Occlusion of the distal superficial femoral artery with distal reconstitution of the po pliteal artery. Monophasic waveforms throughout the remainder of the right lower extremity. Decreased velocity within the distal right lower extremity. Moderate atheromatous plaque. Superficial femoral artery stents. IMPRESSION: 1. Occlusion of the right distal superficial femoral artery with reconstitution of the popliteal art rhianna and diminished flow within the distal lower extremity. Electronically signed by: Ishmael Miranda DO (05/01/2021 2:45 AM) [facility]
[2021-05-01] MEDS ORDERED: HEPARIN 25,000UTS/250ML PREMIX 250 ML IV PRN (03:45)
[2021-05-01] MEDS ORDERED: HEPARIN for IV BOLUS 10,000 UNIT/10 ML VIAL. IV PRN ×3 (03:45)
[2021-05-01] MEDS ORDERED: ANTI-COAG MONITOR BY PHARMACY. MC PRN (04:00)
[2021-05-01] MEDS ORDERED: HEPARIN for IV BOLUS 10,000 UNIT/10 ML VIAL. IV ONE (04:00)
[2021-05-01 04:15] VITALS: BP 183/83
== END 2021-05-01 04:54 | disposition short-term general hospital (02) ==
LOC: ER 00:24
DX: I73.9 Peripheral vascular disease, unspecified (principal); I77.1 Stricture of artery; F41.9 Anxiety disorder, unspecified; J44.9 Chronic obstructive pulmonary disease, unspecified; K21.9 Gastro-esophageal reflux disease without esophagitis; I10 Essential (primary) hypertension; Z20.822 Contact with and (suspected) exposure to COVID-19; Z87.440 Personal history of urinary (tract) infections; Z88.8 Allergy status to other drugs, medicaments and biological substances; Z88.1 Allergy status to other antibiotic agents
CPT/HCPCS: 36415; 80048; 84484; 85025; 85379; 85610; 85730; 87426; 93005; 93926; 96361; 96365; 96375; 96376; 99285; C9803; J1644; J3010; J7120; U0003

== ENCOUNTER 2021-06-12 14:30 | Emergency (ER) | payer MEDICARE ==
[~2021-06-12] VITALS: Ht 149.9 cm; Wt 40.0 kg
[2021-06-12] MEDS: ORPHENADRINE CITRATE 60 MG/2 ML VIAL. IM ONE (15:27)
[2021-06-12] MEDS: KETOROLAC 30 MG/ML VIAL. IM ONE (15:27)
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
--- NOTE | 2021-06-12 16:23 | RAD ---
EXAMINATION: XR BILATERAL HIP (WITH OR WITHOUT PELVIS) 2 VIEWS_RIGHT CLINICAL HISTORY: Right hip pain TECHNIQUE: XR BILATERAL HIP (WITH OR WITHOUT PELVIS) 2 VIEWS_RIGHT Number of Images/Views: 3 COMPARISON: None FINDINGS: Mild axial joint space narrowing in the right hip with tiny marginal osteophytes. Similar findings no john in the left hip on limited evaluation. Pubic symphysis and SI joints maintained. Partially visual ized lumbar degenerative changes. No acute fracture. Multiple bilateral endovascular stent grafts. IMPRESSION: Mild degenerative changes right hip. Electronically signed by: Bud Palacio DO (06/12/2021 4:20 PM) [facility]
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
[2021-06-12] MEDS ORDERED: HYDR-2155 PO (16:36)
[2021-06-12] MEDS ORDERED: CYCL5TAB PO (17:11)
[2021-06-12 17:25] VITALS: BP 110/70
== END 2021-06-12 17:26 | disposition home or self-care (01) ==
LOC: ER 14:30
DX: S32.010A Wedge compression fracture of first lumbar vertebra, initial encounter for closed fracture (principal); S32.030A Wedge compression fracture of third lumbar vertebra, initial encounter for closed fracture; S32.040A Wedge compression fracture of fourth lumbar vertebra, initial encounter for closed fracture; F41.9 Anxiety disorder, unspecified; J44.9 Chronic obstructive pulmonary disease, unspecified; K21.9 Gastro-esophageal reflux disease without esophagitis; I10 Essential (primary) hypertension; Z87.440 Personal history of urinary (tract) infections; Z90.89 Acquired absence of other organs; Z90.710 Acquired absence of both cervix and uterus; Z88.1 Allergy status to other antibiotic agents; Z88.8 Allergy status to other drugs, medicaments and biological substances; X58.XXXA Exposure to other specified factors, initial encounter; Y93.89 Activity, other specified; Y92.89 Other specified places as the place of occurrence of the external cause; Y99.8 Other external cause status
CPT/HCPCS: 72131; 73502; 96372; 99284; J1885; J2360

== ENCOUNTER → 2021-06-20 | Outpatient (CLI) | payer MEDICARE ==
[2021-06-12 17:25] VITALS: BP 110/70
[~2021-06-20] MED LIST changes: +CYCL5TAB PO; +HYDR-2155 PO
--- NOTE | 2021-06-20 14:45 | RAD ---
INDICATION: Screening for osteopenia/osteoporosis. Postmenopausal follow-up COMPARISON: 03/04/2018 TECHNIQUE: Bone densitometry was performed through the lumbar spine and proximal femur. IMPRESSION: Lumbar Spine: BMD: 1.14 T-Score: -0.3 Range: Normal. Increased by 1 percent from prior. Sclerosis at some of the vertebral bodies Proximal Femur: BMD: 0.68 T-Score: -2.2 Range: Osteopenic. Decreased by 1 percent from prior. There is some sclerosis at the hip joint which is commonly from degenerative changes. World Health Organization Criteria for Bone Density: T-Score: > -1.0: Normal Range < -1.0 to -2.5: Osteopenic Range < -2.5: Osteoporotic Range Electronically signed by: He Heck MD (06/20/2021 2:42 PM) [id number]
--- NOTE | 2021-06-23 10:57 | RAD ---
Study: BILATERAL SCREENING MAMMOGRAM History: Routine screening. Comparison: 02/15/2020. Technique: Routine 2D and 3D tomosynthesis digital mammogram views were obtained bilaterally. Interpr etation was assisted with the use of computer-aided detection. Findings: Breast Tissue Density D :The breasts are extremely dense, which lowers the sensitivity of mammography . There are no dominant masses, suspicious microcalcifications, or architectural distortion. Extensive calcifications with benign morphology and distribution again seen throughout both breasts. IMPRESSION: No mammographic evidence of malignancy. Recommend routine screening mammography in one year. BI-RADS category 2: Benign findings. Patient information is entered into the reminder system with a target due date for the next screening mammogram. "Our facility is accredited by the [employer] Mammography Program." Electronically signed by: ANNALISA CHAMPION MD (06/23/2021 10:55 AM) [id number]
== END ==
LOC: MAMMO 13:06
PROVIDERS: ATTEND Family Medicine
DX: Z12.31 Encounter for screening mammogram for malignant neoplasm of breast (principal); N64.89 Other specified disorders of breast; M81.0 Age-related osteoporosis without current pathological fracture
CPT/HCPCS: 77063; 77067; 77080

== ENCOUNTER 2021-07-28 14:10 | Emergency (ER) | payer MEDICARE ==
[~2021-07-28] VITALS: Ht 149.9 cm; Wt 42.4 kg
--- NOTE | 2021-07-28 14:24 | PHYS DOC ---
Past History Past Medical History: Anxiety, Cancer, COPD, GERD, Hypertension, UTI Past Surgical History: Appendectomy, Cancer Surgery, Hysterectomy, Other Additional Past Surgical Histo: stent placement Smoking: Non-smoker Alcohol Use: None Drug Use: None Adult General HPI HPI Patient is a 80-year-old female presenting with for fall. Injury onset was approximately 6 hours prior to arrival. Patient reports she was walking to work and suffered a mechanical fall on the uneven sidewalk. She fell forward hitting her right anterior face and right anterior knee on the ground. Reports she had focal pain and bleeding, especially given that she is on Plavix for prior right femoral stent. States that her bleeding has been intermittent since onset and this concerned her prompting her to come in for evaluation. She otherwise has no other concerning signs or symptoms such as lightheadedness, dizziness, syncope, chest pain, shortness of breath, ripping or tearing sensation in abdomen, nausea or vomit, loss of bladder or bowel function, changes in motor or sensory or neuro function Review of Systems Review of Systems Fourteen body systems of review of systems have been reviewed. See HPI for pertinent positives and negative responses, other zendejas all other systems are negative, non-pertinent or non-contributory Allergies Allergies Allergies Coded Allergies Type Severity Reaction Last Updated Verified nitrofurantoin Allergy Severe Shortness of Air 05/01/21 Yes amoxicillin Allergy Intermediate 05/01/21 Yes Physical Exam Physical Exam Constitutional: Pt is oriented to person, place, and time. Pt appears well-developed and age- appropriate HEENT: Head: Normocephalic TMs clear, no hemotympanum Conjunctivae and EOM are normal. Pupils are equal, round, and reactive to light. Oropharynx is clear and moist. Patient has hematoma present tolateral and superior portion of right orbit with superficial abrasions noted to nose and right superior lip and jawline OP clear, no blood, no malocclusion, dentition intact Nares clear, no nasal septal hematoma Midface stable Neck: C-spine midline nontender, no step-offs Cardiovascular: Normal rate, regular rhythm and normal heart sounds. Pulmonary/Chest: Effort normal and breath sounds normal. No respiratory distress. No wheezes. CTA bilaterally Abdominal: Soft. Bowel sounds are normal. Pt exhibits no distension. There is no tenderness. Musculoskeletal: No bony tenderness to extremities, no deformities, full ROM extremities Chest wall stable Pelvis stable and non-tender No vertebral TTP and spine without stepoffs 2+ DP and TP pulses to bilateral lower extremities Neurological: Pt is alert and oriented to person, place, and time. Moving all extremities willfully, able to wiggle all fingers and toes Alert and oriented x 3 Motor and sensory function fully intact No saddle anesthesia Skin: Skin is warm and dry. Significant abrasions noted to right anterior knee and castro. There are x2 superficial horizontally oriented lacerations present to right anterior knee. Laceration number one 1 cm and inferior to the patellar bone, laceration #2 is 1 cm and inferior to distal insertion point of patellar ligament Psychiatric: Behavior is appropriate for situation Current Patient Data Vital Signs Vital Signs Date Time Temp Pulse Resp B/P (MAP) Pulse Ox O2 Delivery O2 Flow Rate FiO2 07/28/21 14:28 97.7 85 20 188/90 (122) 97 Room Air Vital Signs Date Time Temp Pulse Resp B/P (MAP) Pulse Ox O2 Delivery O2 Flow Rate FiO2 07/28/21 14:28 97.7 85 20 188/90 (122) 97 Room Air EKG EKG [] Radiology/Procedures Radiology/Procedures CT HEAD AND C-SPINE WO, CT MAXILLOFACIAL WITHOUT CONTRAST History: Reason: Fall to right anterior orbit, head and neck pain, abrasions / Spl. Instructions: / History: Comparison: None. Technique: Noncontrast CT imaging was performed of the head, maxillofacial and cervical spine. Coronal and sagittal reconstructions were performed. Exposure: One or more of the following individualized dose reduction techniques were utilized for this examination: 1. Automated exposure control 2. Adjustment of the mA and/or kV according to patient size 3. Use of iterative reconstruction technique. Findings: Head CT: No intracranial hemorrhage. No mass effect. No hydrocephalus. Extensive foci of decreased attenuation within the hemispheric white matter, most often due to chronic microvascular ischemia. Maxillofacial CT: Mild right anterior supraorbital soft tissue edema. No acute maxillofacial fracture. Orbits are unremarkable. Minimal scattered paranasal sinus mucosal thickening. Mastoid air cells are clear. No acute calvarial fracture. Cervical spine CT: Grade 1 anterolisthesis C3 on C4, C4 on C5 and C5 on C6 as well as C7 on T1. Normal vertebral body height. No acute fracture. Moderate degenerative disc changes most prominent C3-C4, C5-C6 and C6-C7. Facet arthropathy. Chondrocalcinosis throughout the cervical spine. No high-grade canal narrowing. Multilevel neuroforaminal narrowing. Pulmonary emphysema. Impression: Head CT: 1. No acute intracranial abnormality. 2. Extensive sequelae of chronic microvascular ischemia. Maxillofacial CT: 1. No acute maxillofacial fracture. 2. Mild right supraorbital soft tissue swelling. Cervical spine CT: 1. No acute fracture or subluxation of the cervical spine. 2. Moderate cervical spondylosis. Electronically signed by: Ishmael Miranda DO (07/28/2021 3:21 PM) [facility] Heart Score C/O Chest Pain: No Risk Factors: Risk Factors: DM, Current or recent (<one month) smoker, HTN, HLP, family history of CAD, obesity. Risk Scores: Risk Factors: DM, Current or recent (<one month) smoker, HTN, HLP, family history of CAD, obesity. Course & Med Decision Making Course & Med Decision Making Airway patent, breathing unlabored, vitals obtained concerning for slight hypertension only Comprehensive HPI, physical exam and ER work-up nonconcerning for any emergent or surgical issues Patient's we intended for. Last tetanus unknown and updated today. X2 right lower extremity superficial lacerations were fixed shut with Dermabond without issues. Pain controlled while in ER with x1 [place] 7.5. Ambulatory patient d ischarged with supportive care and PCP follow-up Rosa Disclaimer Rosa Disclaimer This electronic medical record was generated, in whole or in part, using a voice recognition dictation system. Laceration Repair Lac Repair Indication: Superficial laceration present to x2 right anterior lower extremity wounds Procedure: The patient was placed in the appropriate position and entire right lower extremity exposed. The area was then cleansed with wound care solution and explored with no obvious foreign body and no concerning penetration and/or underlying muscle Ligman etc. damage given superficial nature of lacerations. The both lacerations were glued shut using Dermabond. For laceration #2, a mild amount maxal and Steri-Strips were used to ensure adequate tissue closure Total repaired wound length: Laceration #1, 1 cm. Laceration #2, 1 cm Other Items: Dermabond The patient tolerated the procedure well. Complications: None. Departure Departure: Impression: Primary Impression: Fall Additional Impression: Abrasions of multiple sites Disposition: HOME / SELF CARE / HOMELESS Condition: STABLE Referrals: RILEY WAGNER MD (PCP) Patient Instructions: Abrasions Additional Instructions: Keep your abrasions clean and dry. You may apply bandages and antibiotic ointment as needed but they should heal well without any further treatment. Return to the ED if you develop worsening pain, swelling, redness, or fever. Problem Qualifiers BIBIANA MERCHANT DO Jul 28, 2021 14:24
[2021-07-28] MEDS ORDERED: HYDROcodone/APAP 7.5/325MG 1 TAB TABLET PO ONE (14:45)
--- NOTE | 2021-07-28 15:23 | RAD ---
CT HEAD AND C-SPINE WO, CT MAXILLOFACIAL WITHOUT CONTRAST History: Reason: Fall to right anterior orbit, head and neck pain, abrasions / Spl. Instructions: / History: Comparison: None. Technique: Noncontrast CT imaging was performed of the head, maxillofacial and cervical spine. [place] l and sagittal reconstructions were performed. Exposure: One or more of the following individualized dose reduction techniques were utilized for thi s examination: 1. Automated exposure control 2. Adjustment of the mA and/or kV according to patient size 3. Use of iterative reconstruction technique. Findings: Head CT: No intracranial hemorrhage. No mass effect. No hydrocephalus. Extensive foci of decreased attenuation within the hemispheric white matter, most often due to chroni c microvascular ischemia. Maxillofacial CT: Mild right anterior supraorbital soft tissue edema. No acute maxillofacial fracture . Orbits are unremarkable. Minimal scattered paranasal sinus mucosal thickening. Mastoid air cells are clear. No acute calvarial fracture. Cervical spine CT: Grade 1 anterolisthesis C3 on C4, C4 on C5 and C5 on C6 as well as C7 on T1. Normal vertebral body he ight. No acute fracture. Moderate degenerative disc changes most prominent C3-C4, C5-C6 and C6-C7. Facet arthropathy. Chondroc alcinosis throughout the cervical spine. No high-grade canal narrowing. Multilevel neuroforaminal javier rowing. Pulmonary emphysema. Impression: Head CT: 1. No acute intracranial abnormality. 2. Extensive sequelae of chronic microvascular ischemia. Maxillofacial CT: 1. No acute maxillofacial fracture. 2. Mild right supraorbital soft tissue swelling. Cervical spine CT: 1. No acute fracture or subluxation of the cervical spine. 2. Moderate cervical spondylosis. Electronically signed by: Ishmael Miranda DO (07/28/2021 3:21 PM) [facility]
--- NOTE | 2021-07-28 15:30 | RAD ---
XR KNEE 3 VIEWS_RT History: Reason: fall to anterior knee, pain with abrasions, skin tears / Spl. Instructions: / Histo ry: Technique: 3 views right knee Comparison: None. Findings: Normal alignment. No acute fracture. Mild right knee degenerative changes with chondrocalcinosis. Vas cular calcifications. Vascular stent projecting over the posterior lower extremity. No significant kn ee joint effusion. Anterior knee soft tissue injury with subcutaneous gas. No radiopaque foreign body . Impression: 1. No acute osseous abnormality. 2. Anterior knee soft tissue injury. No radiopaque foreign body. 3. Mild right knee DJD with chondrocalcinosis. Electronically signed by: Ishmael Miranda DO (07/28/2021 3:28 PM) [email or web address]
[2021-07-28 16:00] VITALS: BP 175/78
[2021-07-28] MEDS ORDERED: DIPHTH,PERTUSS(ACELL),TET TOX 0.5 ML DISP.SYRIN. VAX IM ONE (16:00)
== END 2021-07-28 16:30 | disposition home or self-care (01) ==
LOC: ER 14:10
DX: S81.011A Laceration without foreign body, right knee, initial encounter (principal); S05.11XA Contusion of eyeball and orbital tissues, right eye, initial encounter; J44.9 Chronic obstructive pulmonary disease, unspecified; K21.9 Gastro-esophageal reflux disease without esophagitis; I10 Essential (primary) hypertension; Z87.440 Personal history of urinary (tract) infections; Z88.1 Allergy status to other antibiotic agents; Z88.8 Allergy status to other drugs, medicaments and biological substances; W18.39XA Other fall on same level, initial encounter; Y93.01 Activity, walking, marching and hiking; Y92.89 Other specified places as the place of occurrence of the external cause; Y99.8 Other external cause status
CPT/HCPCS: 12001; 70450; 70486; 72125; 73562; 90471; 90715; 99284